=== PATIENT | female | born 1965 | race Caucasian/White ===

== ENCOUNTER 2019-07-22 15:04 | Emergency (ER) | payer OTHER ==
--- NOTE | 2019-07-22 15:14 | ED ---
HPI Chest Pain - HPI Summary HPI Summary: 54 y/o female presented to [facility] for midsternal CP present since this morning. Pt began feeling pain at 0600 which progressively worsened until 1400 when it radiated into her left arm/shoulder and did not resolve until soon before she arrived at [facility] at about 1500. Pt states her sternum hurt to press on and that it felt like a bruise. Pt denies diaphoresis, leg edema, leg pain, and abd pain. She was given IV fluids by EMS. Pt notes hx of HTN, bronchitis in May 2019, and 2 hospitalizations for CP, but denies cardiac hx as well as hx of blood clots. Pt is not on pain medication and notes fhx of diabetes. She tosses and turns at night. - History of Current Complaint Hx Obtained From: Patient, EMS Onset/Duration: Started Hours Ago, Resolved Timing: Lasting Hours Current Severity: None Pain Scale Used: 0-10 Numeric Chest Pain Location: Mid Sternal Chest Pain Radiates To:: Shoulder - left, Arm - left Character: Other: - "like a bruise" Aggravating Factor(s): Nothing Alleviating Factor(s): Nothing Associated Signs and Symptoms: Positive: Other: - negative leg pain. Negative: Swelling, Diaphoresis, Abdominal Pain - Allergy/Home Medications Home Medications: Home Medications Cetirizine* [ZyrTEC 10 MG TAB*] 10 mg PO DAILY 07/22/19 [History Confirmed 07/22] Fluoxetine HCl 20 mg PO DAILY 07/22/19 [History Confirmed 07/22/19] Levothyroxine TAB* [Synthroid TAB*] 100 mcg PO DAILY 07/22/19 [History Confirmed 07/22/19] Metoprolol Tartrate TAB* [Lopressor TAB*] 25 mg PO DAILY 07/22/19 [History Confirmed 07/22/19] Mi-Acid Gas Relief 80 mg PO QID 07/22/19 [History Confirmed 07/22/19] Montelukast Sodium TAB* [Singulair TAB*] 10 mg PO DAILY 07/22/19 [History Confirmed 07/22/19] Nabumetone 500 mg PO BID 07/22/19 [History Confirmed 07/22/19] Pantoprazole TAB * [Protonix TAB*] 40 mg PO DAILY 07/22/19 [History Confirmed ] PMH/Surg Hx/FS Hx/Imm Hx Cardiovascular History: Reports: Hx Hypertension Sensory History: Denies: Hx Legally Blind, Hx Deafness Opthamlomology History: Denies: Hx Legally Blind EENT History: Denies: Hx Deafness - Family History Known Family History: Positive: Diabetes - Social History Alcohol Use: Rare Substance Use Type: Reports: None Review of Systems Negative: Skin Diaphoresis Positive: Chest Pain Negative: Abdominal Pain Negative: Myalgia - legs, Edema All Other Systems Reviewed And Are Negative: Yes Physical Exam - Summary Physical Exam Summary: Constitutional: Well-developed, Well-nourished, Alert. (-) Distressed Skin: Warm, Dry HENT: Normocephalic; Atraumatic Eyes: Conjunctiva normal Neck: Musculoskeletal ROM normal neck. (-) JVD, (-) Stridor, (-) Tracheal deviation Cardio: Rhythm regular, rate normal, Heart sounds normal; Intact distal pulses; The pedal pulses are 2+ and symmetric. Radial pulses are 2+ and symmetric. (-) Murmur Pulmonary/Chest wall: Effort normal. (-) Respiratory distress, (-) Wheezes, (-) Rales, Chest wall tenderness over left sternal border Abd: Soft, (-) tenderness, (-) Distension, (-) Guarding, (-) Rebound Musculoskeletal: (-) Edema Lymph: (-) Cervical adenopathy Neuro: Alert, Oriented x3 Psych: Mood and affect Normal Triage Information Reviewed: Yes Vital Signs Reviewed: Yes Procedures - Sedation Patient Received Moderate/Deep Sedation with Procedure: No Diagnostics - Laboratory Result Diagrams: 07/22/19 15:22 07/22/19 15:22 Lab Statement: Any lab studies that have been ordered have been reviewed, and results considered in the medical decision making process. - Radiology cxr Radiology Interpretation Completed By: Radiologist Summary of Radiographic Findings: IMPRESSION: NO ACTIVE CARDIOPULMONARY DISEASE. This report was reviewed by Dr. Elaine. - EKG 1528 Cardiac Rate: Bradycardia EKG Rhythm: Sinus Bradycardia Summary of EKG Findings: EKG at 1528 shows sinus bradycardia at 55bpm. T-wave inversions in III, avF, V2-V6. Similar to EKG obtained from [facility] taken on 02/07/19. This EKG was reviewed and interpreted by Dr. Elaine. Chest Pain Course/Dx - Course Course Of Treatment: 54 y/o female presented to [facility] for midsternal CP present since this morning. Pt began feeling pain at 0600 which progressively worsened until 1400 when it radiated into her left arm/shoulder and did not resolve until soon before she arrived at [facility] about 1500. Pt states her sternum hurt to press on and that it felt like a bruise. Pt denies diaphoresis, leg edema, leg pain, and abd pain. Exam showed Chest wall tenderness over left sternal border. Bloodwork showed MCV L, MCH L, MPV L, BUN/ creatinine ratio H, Alk H. EKG at 1528 shows sinus bradycardia at 55bpm. T- wave inversions in III, avF, V2-V6. Similar to EKG obtained from [facility] taken on 02/07/19. X-ray chest showed NO ACTIVE CARDIOPULMONARY DISEASE. No evidence of ACS based on ED workup. Patient's symptoms possibly secondary to chest wall pain based on her presentation and given the reproducibility of her pain on palpation. Patient comfortable with discharge home. Has PCP for follow up. Pt was diagnosed with chest pain and discharged to home. - Diagnoses Provider Diagnoses: Chest pain Discharge ED - Sign-Out/Discharge Documenting (check all that apply): Patient Departure - dc - Discharge Plan Condition: Stable Disposition: HOME Patient Education Materials: Chest Pain (ED) Referrals: Elieser Alcantara DO [Primary Care Provider] - Additional Instructions: Follow up with your primary care provider in 2-3 days. If you experience new or worsening symptoms please return to the ER. - Billing Disposition and Condition Condition: STABLE Disposition: Home - Attestation Statements Document Initiated by Heather: Yes Documenting Scribe: Lito Lindquist Provider For Whom Heather is Documenting (Include Credential): Jason Elaine DO Scribnuria Attestation: Lito Purvis scribed for Jason Elaine DO on 07/22/19 at 2020. Scribe Documentation Reviewed: Yes Provider Attestation: The documentation as recorded by the Lito monique accurately reflects the service I personally performed and the decisions made by , Jason Elaine DO Status of Heather Document: Viewed
[2019-07-22 15:30] LABS: ABS Basophils 0.1 10^3/ul (0-0.2); ABS Eosinophils 0.3 10^3/ul (0-0.6); ABS Lymphocytes 2.2 10^3/ul (1.0-4.8); ABS Monocytes 0.5 10^3/ul (0-0.8); ABS Neutrophils 4.5 10^3/ul (1.5-7.7); Eosinophil % 3.5 %; Hematocrit 37 % (35-47); Hemoglobin 12.3 g/dL (12.0-16.0); Lymphocyte % 29.1 %; Mean Corpuscular HGB Conc 34 g/dL (31-36); Mean Corpuscular Hemoglobin 26 pg (27-31); Mean Corpuscular Volume 77 fL (80-97); Mean Platelet Volume 7.2 fL (7.4-10.4); Platelet Count 375 10^3/uL (150-450); Red Blood Count 4.75 10^6 /uL (3.70-4.87); Red Cell Distribution Width 15 % (10-15); White Blood Count 7.5 10^3/uL (3.5-10.8)
[2019-07-22 15:47] LABS: Albumin 4.2 g/dL (3.2-5.2); Albumin/Globulin Ratio 1.4 (1-3); BUN/Creatinine Ratio 21.9 (8-20); Calcium 9.2 mg/dL (8.6-10.3); EGFR African American 99.8 (>60); EGFR Non-African American 82.5 (>60); Potassium 3.5 mmol/L (3.5-5.0); Total Bilirubin 0.3 mg/dL (0.2-1.0); Total Protein 7.2 g/dL (6.4-8.9)
--- OUTSIDE RECORDS SUMMARY | 2019-07-22 17:09 | XMS REPORT | Continuity of Care Document ---
:1965 External Reference #:[id number] Author Name Jose Armando Womack M.D. (transmitted by agent of provider Charlette Mckeon) Address [address] [place] [address] Care Team Providers Name Role Phone Elieser Alcantara D.O. - Internal Care Team Information [employer] [phone] Medicine Problems Active Problems Provider Date Chest pain Oracio Castro M.D., [facility], Onset: 05/21/2014 [facility] Electrocardiogram abnormal Oracio Castro M.D., [facility], Onset: 05/21/2014 [facility] Carpal tunnel syndrome of right wrist Jose Armando Womack M.D. Onset: 04/11/2015 Localized, primary osteoarthritis of Jose Armando Womack M.D. Onset: 04/11/2015 the hand Encounter for other orthopedic Jose Armando Womack M.D. Onset: 05/09/2015 aftercare Radial styloid tenosynovitis Jose Armando Womack M.D. Onset: 06/06/2015 Disorder of shoulder Jose Armando Womack M.D. Onset: 01/11/2017 Dysphagia Michael Sánchez M.D. Onset: 01/19/2017 Disorder of oral soft tissues Michael Sánchez M.D. Onset: 01/19/2017 Carpal tunnel syndrome of left wrist Jose Armando Womack M.D. Onset: 04/01/2017 Localized, primary osteoarthritis Jose Armando Womack M.D. Onset: 05/03/2017 Unspecified injury of muscle, fascia Jose Armando Womack M.D. Onset: 06/10/2017 and tendon of long head of biceps, right arm, subsequent encounter Derangement of knee Jose Armando Womack M.D. Onset: 07/01/2017 Chondromalacia Jose Armando Womack M.D. Onset: 07/19/2017 Loose body in knee Jose Armando Womack M.D. Onset: 07/19/2017 Right side sciatica Jose Armando Womack M.D. Onset: 09/13/2017 Strain of long head of biceps Jose Armando Womack M.D. Onset: 03/21/2018 Social History Type Date Description Comments Sex Unknown Tobacco Use Start: Unknown End: Former Cigarette Smoker Unknown Smoking Status Reviewed: 06/12/19 Former Cigarette Smoker ETOH Use Rarely consumes alcohol Tobacco Use Start: Unknown End: Patient is a former smoked for about Unknown smoker 25yrs, 1/2-1PPD Recreational Drug Use Denies Drug Use Exercise Type/Frequency Does not exercise Allergies, Adverse Reactions, Alerts Active Allergies Reaction Severity Comments Date NKDA 05/21/2014 Onions 02/24/2015 Mold 02/24/2015 Grass 02/24/2015 Medications Active Medications SIG Qnty Indications Ordering Date Provider Gabapentin 1 by mouth every 90caps M54.31 Jose Armando Womack, 06/12/2019 300mg evening at dinner, M.D. Capsules second capsule at night at bedtime. If still no effect after 7 days, take 2 capsules at bedtime Diclofenac Sodium apply 4 gr to 300gm Jose Armando Womack, 03/21/2018 1% right knee twice a M.D. Gel day as needed Meloxicam take one tablet by 60tabs M94.261 Jose Armando Womack, 12/06/2017 7.5mg Tablets mouth twice daily M.D. as needed Gabapentin 1 capsule by mouth 150caps M94.261 Jose Armando Womack, 12/06/2017 100mg qAM, second tab in M.D. Capsules ther afternoon, 3 PO qhs. May spread out evening dose if too sedating Famotidine 1 by mouth every 60tabs R13.10 Michael 03/09/2017 40mg Tablets day every night at [place], M.D. bedtime Cranberry 1 by mouth daily Unknown 450mg Tablets Levothyroxine Sodium 1 by mouth every Unknown day 100mcg Tablets Ventolin HFA 2 puffs by mouth Unknown four times a day 108(90Base) mcg/Act as needed Aerosol Fluticasone 2 sprays each Unknown Propionate nostril daily as 50mcg/Act needed Suspension Fish Oil daily Unknown Aspirin 1 by mouth every Unknown 81mg Tablets day Spiriva Handihaler 2 inhalation by 3mon Unknown mouth every 18mcg Capsules morning Pantoprazole Sodium 1 by mouth every 30tabs Unknown day 40mg Tablets DR Metoprolol Tartrate 1/2 tab by mouth Unknown twice a day 25mg Tablets Fluoxetine HCL 1 by mouth every 90caps Unknown 20mg day Capsules Montelukast Sodium 1 by mouth every Unknown 10mg day Tablets Nabumetone 1 by mouth twice a 60tabs Unknown 500mg day Tablets History Medications Gabapentin 1 by mouth every 30caps M54.31 Jose Armando Womack, 05/01/2019 - 300mg night at bedtime M.D. 06/12/2019 Capsules [place] 1-2 by mouth 42tabs Jose Armando Womack, 02/20/2019 - 5-325mg daily as needed M.D. 06/11/2019 Tablets [place] 1-2 by mouth 56tabs Jose Armando Womack, 02/16/2019 - 5-325mg every 4 to 6 M.D. 02/20/2019 Tablets hours as needed Medications Administered in Office Medication SIG Qnty Indications Ordering Provider Date Inj, Regadenoson, 0.1 MG Oracio Castro M.D., 07/17/2014 Injection SHERIF RAMON Technetium TC 99M Oracio Castro M.D., 07/17/2014 Tetrofosmin, Per Unit Dose SHERIF RAMON Up To 40 Millicuries Injection Immunizations Description No Information Available Vital Signs Date Vital Result Comment 06/12/2019 9:15am Height 62 inches 5'2" Weight 199.50 lb Heart Rate 70 /min BP Systolic Sitting 136 mmHg BP Diastolic Sitting 82 mmHg Body Temperature 97.9 F BMI (Body Mass Index) 36.5 kg/m2 05/01/2019 9:25am Height 62 inches 5'2" Weight 202.38 lb Heart Rate 83 /min BP Systolic Sitting 126 mmHg BP Diastolic Sitting 78 mmHg Body Temperature 97.1 F BMI (Body Mass Index) 37.0 kg/m2 Results Description No Information Available Procedures Date Code Description Status 02/16/2019 68165 Arthroscopy,Shoulder Decompression Of Subacromial Space Completed W/Acromio 02/16/2019 73754 Arthroscopy,Shoulder,Distal Claviculectomy Incl Dist Completed Articular SR 02/16/2019 29184 Arthroscopy, Repair Slap Lesion Completed Medical Devices Description No Information Available Encounters Type Date Location Provider Dx Diagnosis Office Visit 05/01/2019 [facility] Jose Armando Womack M54.31 Sciatica , right 9:30a at [facility] side Office Visit 01/23/2019 [facility] Jose Armando Womack M75.42 Impingement 9:30a at [facility] syndrome of left shoulder M19.012 Primary osteoarthritis, left shoulder Assessments Date Code Description Provider 06/12/2019 M54.31 Sciatica, right side Jose Armando Womack M.D. 06/12/2019 M75.42 Impingement syndrome of left shoulder Jose Armando Womack M.D. 05/01/2019 M54.31 Sciatica, right side Jose Armando Womack M.D. 03/27/2019 M75.42 Impingement syndrome of left shoulder Jose Armando Womack M.D. 03/27/2019 M19.012 Primary osteoarthritis, left shoulder Jose Armando Womack M.D. 03/27/2019 S43.432D Superior glenoid labrum lesion of left Jose Armando Womack M.D. shoulder, subsequent encounter 03/27/2019 Z47.89 Encounter for other orthopedic aftercare Jose Armando Womack M.D. 02/27/2019 M75.42 Impingement syndrome of left shoulder Jose Armando Womack M.D. 02/27/2019 M19.012 Primary osteoarthritis, left shoulder Jose Armando Womack M.D. 02/27/2019 S43.432D Superior glenoid labrum lesion of left Jose Armando Womack M.D. shoulder, subsequent encounter 02/27/2019 Z47.89 Encounter for other orthopedic aftercare Jose Armando Womack M.D. 02/16/2019 M75.42 Impingement syndrome of left shoulder Jose Armando Womack M.D. 02/16/2019 M19.012 Primary osteoarthritis, left shoulder Jose Armando Womack M.D. 02/16/2019 S43.432A Superior glenoid labrum lesion of left Jose Armando Womack M.D. shoulder, initial encounter 01/23/2019 M75.42 Impingement syndrome of left shoulder Jose Armando Womack M.D. 01/23/2019 M19.012 Primary osteoarthritis, left shoulder Jose Armando Womack M.D. Plan of Treatment Future Appointment(s):08/07/2019 9:00 am - Jose Armando Womack M.D. at [facility]/12/2019 - Jose Armando Womack M.D.M54.31 Sciatica, right sideNew Medication:Gabapentin 300 mg - 1 by mouth every evening at dinner, second capsule at night at bedtime. If still no effect after 7 days, take 2 capsules at ehyvtmgP26.42 Impingement syndrome of left shoulderFollow up:6 to 8 weeks Functional Status Description No Information Available Mental Status Description No Information Available Referrals Description No Information Available
--- OUTSIDE RECORDS SUMMARY | 2019-07-22 17:09 | XMS REPORT | Continuity of Care Document ---
:1965 External Reference #:[id number] Author Name Jose Armando Womack M.D. (transmitted by agent of provider Charlette Mckeon) Address [address] [facility] [place] [address] Care Team Providers Name Role Phone Elieser Alcantara D.O. - Internal Care Team Information [employer] [phone] Medicine Problems Active Problems Provider Date Chest pain Oracio Castro M.D., [facility], Onset: 05/21/2014 [facility] Electrocardiogram abnormal Oracio Castro M.D., [facility], Onset: 05/21/2014 [facility] Carpal tunnel syndrome of [...] 300mg night at bedtime M.D. 06/12/2019 Capsules [place] 1-2 by mouth 42tabs Jose Armando Womack, 02/20/2019 - 5-325mg daily as needed M.D. 06/11/2019 Tablets [place] 1-2 by mouth 56tabs Jose Armando Womack, [...] Available Procedures Date Code Description Status 02/16/2019 05413 Arthroscopy,Shoulder Decompression Of Subacromial Space Completed W/Acromio 02/16/2019 73543 Arthroscopy,Shoulder,Distal Claviculectomy Incl Dist Completed Articular SR 02/16/2019 36481 Arthroscopy, Repair Slap Lesion Completed Medical Devices Description No Information Available Encounters Type Date Location Provider Dx Diagnosis Office Visit 05/01/2019 [facility] Jose Armando Womack M54.31 Sciatica , right 9:30a at [facility] side Office Visit 01/23/2019 [facility] Jose Armando Womack M75.42 Impingement 9:30a at [...] am - Jose Armando Womack M.D. at [facility]06/12/2019 - Jose Armando Womack M.D.M54.31 Sciatica, right sideNew Medication:Gabapentin 300 mg - 1 by mouth every evening at dinner, second capsule at night at bedtime. If still no effect after 7 days, take 2 capsules at eujewkoO78.42 Impingement syndrome of left shoulderFollow up:6 to 8 weeks Functional Status Description No Information Available Mental Status Description No Information Available Referrals Description No Information Available
[2019-07-22 19:39] VITALS: BP 164/93
== END 2019-07-22 19:38 | disposition home or self-care (01) ==
LOC: ED 15:04
DX: R07.89 Other chest pain (principal); R00.1 Bradycardia, unspecified; I10 Essential (primary) hypertension; Z79.899 Other long term (current) drug therapy
CPT/HCPCS: 36415; 71045; 80053; 84484; 85025; 93005; 99284

== ENCOUNTER 2020-08-11 06:01 | Observation (INO) ==
[~2020-08-11 06:01] MED LIST: Buffered Lidocaine 1% SYRIN 1 ml INTRADERM ONE; Lactated Ringers 1000 ml BAG 1,000 ML IV SCH
[2020-08-11] MEDS ORDERED: Midazolam 2 mg/2 ml VIAL 1 mg/ml 2 ml VIAL (2 mg) ONE (06:48)
[2020-08-11] MEDS ORDERED: Propofol 10 MG/ML 20 ML BTL ONE ×2 (06:48→09:54)
[2020-08-11] MEDS ORDERED: fentaNYL 100 mcg/2 ml 50 MCG/ML VIAL ONE ×2 (06:48→10:16)
[2020-08-11] MEDS ORDERED: ROPIVACAINE 5 MG/ML 30 ML BTL (0.5%) ONE (06:52)
[2020-08-11] MEDS ORDERED: Dexamethasone IV 4 MG/ML VIAL 1 ml VIAL ONE ×2 (06:52→08:39)
[2020-08-11] MEDS ORDERED: ceFAZolin 2 GM PREMIX 2 GM/50 ML BAG ONE (06:53)
[2020-08-11] MEDS ORDERED: Bupivacaine 0.25% EPI 200,000 30 ML SDV ONE (07:20)
[2020-08-11] MEDS ORDERED: Vancomycin 1,000 MG VIAL ONE (07:20)
[2020-08-11 07:40] LABS: INR 1.04 (0.82-1.09)
[2020-08-11] MEDS ORDERED: Rocuronium 50 mg VIAL 10 mg/ml 5 ml VIAL (50 mg) ONE (08:22)
[2020-08-11] MEDS ORDERED: HYDROmorphone 1 MG/1 ML SYRINGE ONE ×2 (08:23→08:43)
[2020-08-11] MEDS ORDERED: Acetaminophen IV 1 GM/100ML 100 ML ONE (08:40)
[2020-08-11] MEDS ORDERED: Phenylephrine 40 mcg/mL 10mL (400mcg) SYRINGE ONE (09:10)
[2020-08-11] MEDS ORDERED: Naloxone 0.4 mg VIAL 0.4 mg/ml 1 ml VIAL IV PRN (10:13)
[2020-08-11] MEDS ORDERED: HYDROmorphone 1 MG/1 ML SYRINGE IV PRN (10:13)
[2020-08-11] MEDS ORDERED: diPHENhydraMINE IV 50 MG/ML 1 ml VIAL (BENADRYL) IV PRN ×2 (10:13→11:04)
[2020-08-11] MEDS ORDERED: HYDROcodone/ACETAMIN 5/325 mg TAB PO PRN (10:13)
[2020-08-11] MEDS ORDERED: Morphine 2 MG/ML SYRINGE IV PRN (11:04)
[2020-08-11] MEDS ORDERED: Lactulose 30 ml UDC PO PRN (11:04)
[2020-08-11] MEDS ORDERED: Magnesium Hydroxide LIQ 30 ML UDC PO PRN (11:04)
[2020-08-11] MEDS ORDERED: Ondansetron 4 mg VIAL 2 MG/ML 2 ml VIAL IV PRN (11:04)
[2020-08-11] MEDS ORDERED: Ondansetron ODT 4 mg TAB 4 MG TAB PO PRN (11:04)
[2020-08-11] MEDS ORDERED: diPHENhydraMINE 25 mg TAB PO PRN (11:04)
[2020-08-11] MEDS ORDERED: Meloxicam 7.5 mg TAB (NF) PO PRN (11:18)
[2020-08-11] MEDS ORDERED: Fluticasone NASAL SPRAY 50MCG 16 gm SPRAY BTL INTRANASAL PRN (11:18)
[2020-08-11] MEDS ORDERED: Polyethylene Glycol 3350 17 GM PACKET PO PRN (11:20)
[2020-08-11] MEDS ORDERED: Lactated Ringers 1000 ml BAG 1,000 ML IV SCH (12:00)
[2020-08-11] MEDS ORDERED: Albuterol HFA INHALER 8 gm MDI INH PRN (12:36)
[2020-08-11] MEDS: HYDROcodone/ACETAMIN 5/325 mg TAB PO PRN ×2 (15:05→21:51)
[2020-08-11] MEDS: ceFAZolin 1 GM ADVAN 1 GM in NS 0.9% 50 ML 50 ML IVPB SCH (16:55)
[2020-08-11] MEDS: Mometasone/Formoter 200/5 MDI INH SCH (20:14)
[2020-08-11] MEDS: Magnesium Hydroxide LIQ 30 ML UDC PO SCH (21:49)
[2020-08-12] MEDS: ceFAZolin 1 GM ADVAN 1 GM in NS 0.9% 50 ML 50 ML IVPB SCH ×2 (01:12→09:30)
[2020-08-12 05:36] LABS: Hematocrit 35 % (35-47); Hemoglobin 11.6 g/dL (12.0-16.0); Mean Platelet Volume 7.5 fL (7.4-10.4); Platelet Count 421 10^3/uL (150-450)
[2020-08-12 05:53] LABS: BUN/Creatinine Ratio 17.7 (8-20); Calcium 9.1 mg/dL (8.6-10.3); EGFR African American 90.8 (>60); Potassium 4.3 mmol/L (3.5-5.0)
[2020-08-12] MEDS ORDERED: SPIRIVA Respimat (tiotropium) 2.5 mcg/inh Inhaler INH SCH (09:00)
[2020-08-12] MEDS ORDERED: Vitamin THERAPEUTIC TAB PO SCH (09:00)
[2020-08-12] MEDS ORDERED: Aspirin EC 81 mg TAB.EC (enteric coated) PO SCH (09:00)
[2020-08-12] MEDS: Magnesium Hydroxide LIQ 30 ML UDC PO SCH (09:32)
[2020-08-12] MEDS: Mometasone/Formoter 200/5 MDI INH SCH (10:54)
[2020-08-12 11:51] VITALS: BP 105/53
[2020-08-12] MEDS: HYDROcodone/ACETAMIN 5/325 mg TAB PO PRN (13:11)
== END 2020-08-12 14:05 | disposition home or self-care (01) ==
LOC: SSU 06:01 → OR 06:01
PROVIDERS: ADMIT Orthopaedic Surgery; ATTEND Orthopaedic Surgery